=== PATIENT | female | born 1940 | race Two or more races ===

== ENCOUNTER → 2020-08-13 | Outpatient (CLI) | payer MEDICARE ==
[2020-08-13 08:57] LABS: Basophils # (auto) 0 10 ^3/uL (0-0.2); Basophils % (auto) 0.8 % (0.0-2.0); Eosinophils # (auto) 0.1 10 ^3/uL (0-0.8); Eosinophils % (auto) 3.4 % (0.0-7.0); Hematocrit 35.5 % (36.0-46.0); Hemoglobin 11.9 g/dL (12.2-16.2); Lymphocytes # (auto) 1.3 10 ^3/uL (0.4-5.4); Lymphocytes % (auto) 33.8 % (10.0-50.0); Mean Corpuscular Hemoglobin 32.9 pg (28.0-32.0); Mean Corpuscular Hgb Conc. 33.5 g/dL (32.0-36.0); Mean Corpuscular Volume 98.1 fL (80.0-100.0); Monocytes # (auto) 0.4 10 ^3/uL (0-1.3); Monocytes % (auto) 11.1 % (0.0-12.0); Neutrophils % (auto) 50.9 % (37.0-80.0); Nucleated Red Blood Cells % 0.1 %; Platelet Count (auto) 117 10^3/uL (140-450); Red Blood Cells 3.62 10^6/uL (4.0-5.20); Red Cell Distribution Width 16.6 % (11.8-14.3); White Blood Cell 3.9 10^3/uL (4.4-10.8)
[2020-08-13 09:05] LABS: Urine Bacteria FEW /hpf (None Seen); Urine Blood Negative /uL (Negative); Urine Mucus FEW (None Seen); Urine Specific Gravity 1.024 (1.001-1.035); Urine WBC 61 /hpf (0 - 5)
[2020-08-13 09:14] LABS: INR 1.13 (0.9-1.15)
[2020-08-13 09:47] LABS: Albumin 2.5 g/dL (3.4-5.0); Calcium 8.6 mg/dL (8.5-10.1); Potassium 4.4 mmol/L (3.5-5.1)
[2020-08-13 09:52] LABS: BUN/Creatinine Ratio 15.3; Bilirubin, Total 0.6 mg/dL (0.2-1.0); Total Protein 5.9 g/dL (6.4-8.2)
[2020-08-13 09:56] LABS: Free T4 (Free Thyroxine) 0.99 ng/dL (0.89-1.76)
== END | disposition home or self-care (01) ==
LOC: LAB 08:30
PROVIDERS: ATTEND Internal Medicine
DX: I25.10 Atherosclerotic heart disease of native coronary artery without angina pectoris (principal); G62.9 Polyneuropathy, unspecified; E03.9 Hypothyroidism, unspecified; E16.2 Hypoglycemia, unspecified; E78.5 Hyperlipidemia, unspecified; M81.0 Age-related osteoporosis without current pathological fracture
CPT/HCPCS: 36415; 80053; 80061; 81001; 82306; 82533; 82607; 83036; 83525; 84439; 84443; 85025; 85610; 85652

== ENCOUNTER 2020-08-27 06:01 | Emergency (ER) | payer MEDICARE ==
[~2020-08-27] VITALS: Ht 154.9 cm; Wt 113.4 kg
[2020-08-27 06:57] LABS: Basophils # (auto) 0 10 ^3/uL (0-0.2); Basophils % (auto) 0.7 % (0.0-2.0); Eosinophils # (auto) 0.1 10 ^3/uL (0-0.8); Eosinophils % (auto) 3.4 % (0.0-7.0); Hematocrit 35.7 % (36.0-46.0); Hemoglobin 11.9 g/dL (12.2-16.2); Lymphocytes # (auto) 1.3 10 ^3/uL (0.4-5.4); Lymphocytes % (auto) 33.2 % (10.0-50.0); Mean Corpuscular Hemoglobin 32.7 pg (28.0-32.0); Mean Corpuscular Hgb Conc. 33.3 g/dL (32.0-36.0); Mean Corpuscular Volume 98.1 fL (80.0-100.0); Monocytes # (auto) 0.5 10 ^3/uL (0-1.3); Monocytes % (auto) 12.3 % (0.0-12.0); Neutrophils % (auto) 50.4 % (37.0-80.0); Platelet Count (auto) 111 10^3/uL (140-450); Red Blood Cells 3.64 10^6/uL (4.0-5.20); Red Cell Distribution Width 15.9 % (11.8-14.3); White Blood Cell 3.9 10^3/uL (4.4-10.8)
[2020-08-27] MEDS ORDERED: cloNIDine HCL 0.1 MG TAB PO ONE (07:00)
[2020-08-27 07:09] LABS: Albumin 2.4 g/dL (3.4-5.0); Anion Gap 3 (5-15); Blood Urea Nitrogen 14 mg/dL (7-18); Calcium 8.3 mg/dL (8.5-10.1); Carbon Dioxide 28 mmol/L (21-32); Chloride 111 mmol/L (98-107); Glucose 88 mg/dL (74-106); Potassium 4.1 mmol/L (3.5-5.1); Sodium 142 mmol/L (136-145)
[2020-08-27 07:14] LABS: Alanine Aminotransferase 26 U/L (13-56); Alkaline Phosphatase 147 U/L (45-117); Aspartate Aminotransferase 32 U/L (15-37); BUN/Creatinine Ratio 15.4; Bilirubin, Total 0.5 mg/dL (0.2-1.0); GFR African American 76 mL/min; GFR Non-African American 63 mL/min; Total Protein 5.7 g/dL (6.4-8.2)
[2020-08-27 07:15] LABS: INR 1.13 (0.9-1.15); Partial Thromboplastin Time 25.1 sec (23.0-31.2)
[2020-08-27 08:13] VITALS: BP 174/68
== END 2020-08-27 09:00 | disposition home or self-care (01) ==
LOC: EDBD 06:01 → ER 06:01
DX: I11.0 Hypertensive heart disease with heart failure (principal); R07.89 Other chest pain; I50.9 Heart failure, unspecified; E11.9 Type 2 diabetes mellitus without complications; E43 Unspecified severe protein-calorie malnutrition; Z68.42 Body mass index [BMI] 45.0-49.9, adult
CPT/HCPCS: 36415; 71045; 80053; 83880; 84484; 85025; 85610; 85730; 93005

== ENCOUNTER 2020-08-30 18:29 | Inpatient (IN) | payer MEDICARE ==
[~2020-08-30] VITALS: Ht 162.6 cm; Wt 124.2 kg
[2020-08-30] MEDS ORDERED: cefTRIAXone 1GM/50ML D5W 50 ML IV ONE (19:45)
[2020-08-30 20:58] LABS: Basophils # (auto) 0 10 ^3/uL (0-0.2); Basophils % (auto) 0.5 % (0.0-2.0); Eosinophils # (auto) 0.1 10 ^3/uL (0-0.8); Eosinophils % (auto) 2.7 % (0.0-7.0); Hemoglobin 11.1 g/dL (12.2-16.2); Lymphocytes # (auto) 1.6 10 ^3/uL (0.4-5.4); Lymphocytes % (auto) 39.8 % (10.0-50.0); Mean Corpuscular Hemoglobin 33.7 pg (28.0-32.0); Mean Corpuscular Hgb Conc. 34.6 g/dL (32.0-36.0); Mean Corpuscular Volume 97.5 fL (80.0-100.0); Monocytes # (auto) 0.5 10 ^3/uL (0-1.3); Monocytes % (auto) 11.9 % (0.0-12.0); Neutrophils # (auto) 1.9 10 ^3/uL (1.6-8.6); Neutrophils % (auto) 45.1 % (37.0-80.0); Nucleated Red Blood Cells % 0.1 %; Platelet Count (auto) 101 10^3/uL (140-450); Red Blood Cells 3.28 10^6/uL (4.0-5.20); Red Cell Distribution Width 15.8 % (11.8-14.3); White Blood Cell 4.1 10^3/uL (4.4-10.8)
[2020-08-30 21:11] LABS: Anion Gap 8 (5-15); BUN/Creatinine Ratio 11.8; Blood Urea Nitrogen 11 mg/dL (7-18); Calcium 7.8 mg/dL (8.5-10.1); Carbon Dioxide 26 mmol/L (21-32); Chloride 109 mmol/L (98-107); GFR African American 75 mL/min; GFR Non-African American 62 mL/min; Glucose 88 mg/dL (74-106); Magnesium 1.8 mg/dL (1.6-2.6); Potassium 3.9 mmol/L (3.5-5.1); Sodium 143 mmol/L (136-145)
[2020-08-30 21:37] LABS: Urine Bacteria FEW /hpf (None Seen); Urine Blood Negative /uL (Negative); Urine Mucus FEW (None Seen); Urine Specific Gravity 1.016 (1.001-1.035); Urine WBC 24 /hpf (0 - 5)
[2020-08-31] MEDS ORDERED: ONDANSETRON HCL 4 MG/2 ML VIAL IV PRN (03:30)
[2020-08-31] MEDS ORDERED: NITROGLYCERIN 0.4 MG SL TAB SL PRN (03:30)
[2020-08-31] MEDS ORDERED: ACETAMINOPHEN 325 MG TAB PO PRN (03:30)
[2020-08-31] MEDS ORDERED: DOCUSATE SOD 100 MG CAP PO PRN (03:30)
[2020-08-31] MEDS ORDERED: MORPHINE SULF INJ 2 MG/ML SYRINGE 1ML IV PRN (03:30)
[2020-08-31] MEDS ORDERED: HYDROcodone-ACET 5/325MG TAB PO PRN (03:30)
[2020-08-31 04:11] LABS: Basophils # (auto) 0 10 ^3/uL (0-0.2); Basophils % (auto) 0.6 % (0.0-2.0); Eosinophils # (auto) 0.1 10 ^3/uL (0-0.8); Eosinophils % (auto) 3.1 % (0.0-7.0); Hematocrit 31.1 % (36.0-46.0); Hemoglobin 10.6 g/dL (12.2-16.2); Lymphocytes # (auto) 1.4 10 ^3/uL (0.4-5.4); Lymphocytes % (auto) 36.3 % (10.0-50.0); Mean Corpuscular Hemoglobin 33.1 pg (28.0-32.0); Mean Corpuscular Volume 97.2 fL (80.0-100.0); Monocytes # (auto) 0.5 10 ^3/uL (0-1.3); Monocytes % (auto) 13.1 % (0.0-12.0); Neutrophils # (auto) 1.9 10 ^3/uL (1.6-8.6); Neutrophils % (auto) 46.9 % (37.0-80.0); Platelet Count (auto) 96 10^3/uL (140-450); Red Cell Distribution Width 15.3 % (11.8-14.3); White Blood Cell 3.9 10^3/uL (4.4-10.8)
[2020-08-31 04:29] LABS: Albumin 2.3 g/dL (3.4-5.0); Calcium 8.1 mg/dL (8.5-10.1); Potassium 3.8 mmol/L (3.5-5.1)
[2020-08-31 04:34] LABS: BUN/Creatinine Ratio 12.8; Bilirubin, Total 0.5 mg/dL (0.2-1.0); Total Protein 5.1 g/dL (6.4-8.2)
[2020-08-31 05:00] VITALS: BP 145/90
[2020-08-31] MEDS: SODIUM CHLOR 0.9% PF (SALINE LOCK) 10ML VIAL/SYR IV SCH ×3 (05:22→22:02)
[2020-08-31 09:00] VITALS: BP 130/51
[2020-08-31] MEDS: ENOXAPARIN SOD 40 MG/0.4 ML SYRINGE SC SCH (09:47)
[2020-08-31] MEDS: ASCORBIC ACID 500 MG TAB PO SCH ×2 (09:48→22:00)
[2020-08-31] MEDS: ZINC SULFATE 220mg CAP or TAB PO SCH (09:48)
[2020-08-31] MEDS: cefTRIAXone 1GM/50ML D5W 50 ML IV SCH (09:48)
[2020-08-31] MEDS: FAMOTIDINE 20 MG TAB PO SCH (09:48)
[2020-08-31] MEDS: MULTIPLE VITAMIN TAB PO SCH (09:48)
[2020-08-31 13:00] VITALS: BP 150/82
[2020-08-31] MEDS ORDERED: CYANOCOBALAMIN (B-12) 1000 MCG/1 ML VIAL SUBCUT ONE (16:00)
[2020-08-31 17:00] VITALS: BP 121/83
[2020-08-31 22:00] VITALS: BP 150/65
[2020-09-01 05:07] VITALS: BP 143/74
[2020-09-01 05:18] LABS: Basophils # (auto) 0 10 ^3/uL (0-0.2); Basophils % (auto) 0.6 % (0.0-2.0); Eosinophils # (auto) 0.2 10 ^3/uL (0-0.8); Eosinophils % (auto) 4.7 % (0.0-7.0); Hemoglobin 10.3 g/dL (12.2-16.2); Lymphocytes # (auto) 1.3 10 ^3/uL (0.4-5.4); Lymphocytes % (auto) 36.5 % (10.0-50.0); Mean Corpuscular Hemoglobin 33.6 pg (28.0-32.0); Mean Corpuscular Hgb Conc. 34.5 g/dL (32.0-36.0); Mean Corpuscular Volume 97.4 fL (80.0-100.0); Monocytes # (auto) 0.5 10 ^3/uL (0-1.3); Monocytes % (auto) 14.5 % (0.0-12.0); Neutrophils # (auto) 1.5 10 ^3/uL (1.6-8.6); Neutrophils % (auto) 43.7 % (37.0-80.0); Nucleated Red Blood Cells % 0.3 %; Platelet Count (auto) 86 10^3/uL (140-450); Red Blood Cells 3.08 10^6/uL (4.0-5.20); Red Cell Distribution Width 15.3 % (11.8-14.3); White Blood Cell 3.5 10^3/uL (4.4-10.8)
[2020-09-01 05:31] LABS: Albumin 2.3 g/dL (3.4-5.0)
[2020-09-01 05:36] LABS: Bilirubin, Total 0.5 mg/dL (0.2-1.0)
[2020-09-01] MEDS: SODIUM CHLOR 0.9% PF (SALINE LOCK) 10ML VIAL/SYR IV SCH ×3 (06:00→21:00)
[2020-09-01 09:00] VITALS: BP 115/77
[2020-09-01] MEDS: ENOXAPARIN SOD 40 MG/0.4 ML SYRINGE SC SCH (10:00)
[2020-09-01] MEDS: cefTRIAXone 1GM/50ML D5W 50 ML IV SCH (10:27)
[2020-09-01] MEDS: MULTIPLE VITAMIN TAB PO SCH (10:27)
[2020-09-01] MEDS: FAMOTIDINE 20 MG TAB PO SCH (10:28)
[2020-09-01] MEDS: ASCORBIC ACID 500 MG TAB PO SCH ×2 (10:28→21:00)
[2020-09-01] MEDS: ZINC SULFATE 220mg CAP or TAB PO SCH (10:28)
[2020-09-01 13:00] VITALS: BP 138/64
[2020-09-01 17:00] VITALS: BP 142/63
[2020-09-01] MEDS: NYSTATIN TOPICAL POWDER 15GM TOP SCH (21:00)
[2020-09-01 21:53] VITALS: BP 131/54
[2020-09-02 04:42] VITALS: BP 124/76
[2020-09-02] MEDS: SODIUM CHLOR 0.9% PF (SALINE LOCK) 10ML VIAL/SYR IV SCH ×2 (06:00→14:00)
[2020-09-02 06:57] LABS: Basophils # (auto) 0 10 ^3/uL (0-0.2); Basophils % (auto) 0.6 % (0.0-2.0); Eosinophils # (auto) 0.2 10 ^3/uL (0-0.8); Eosinophils % (auto) 4.5 % (0.0-7.0); Hematocrit 31.6 % (36.0-46.0); Hemoglobin 10.8 g/dL (12.2-16.2); Lymphocytes # (auto) 1.6 10 ^3/uL (0.4-5.4); Lymphocytes % (auto) 38.6 % (10.0-50.0); Mean Corpuscular Hemoglobin 33.6 pg (28.0-32.0); Mean Corpuscular Hgb Conc. 34.2 g/dL (32.0-36.0); Mean Corpuscular Volume 98.1 fL (80.0-100.0); Monocytes # (auto) 0.5 10 ^3/uL (0-1.3); Monocytes % (auto) 12.2 % (0.0-12.0); Neutrophils # (auto) 1.8 10 ^3/uL (1.6-8.6); Neutrophils % (auto) 44.1 % (37.0-80.0); Nucleated Red Blood Cells % 0.1 %; Platelet Count (auto) 89 10^3/uL (140-450); Red Blood Cells 3.22 10^6/uL (4.0-5.20); Red Cell Distribution Width 14.9 % (11.8-14.3); White Blood Cell 4.1 10^3/uL (4.4-10.8)
[2020-09-02 08:00] VITALS: BP 136/87
[2020-09-02] MEDS: cefTRIAXone 1GM/50ML D5W 50 ML IV SCH ×2 (09:00→09:11)
[2020-09-02] MEDS: FAMOTIDINE 20 MG TAB PO SCH (09:10)
[2020-09-02] MEDS: ASCORBIC ACID 500 MG TAB PO SCH (09:11)
[2020-09-02] MEDS: ZINC SULFATE 220mg CAP or TAB PO SCH (09:11)
[2020-09-02] MEDS: MULTIPLE VITAMIN TAB PO SCH (09:14)
[2020-09-02] MEDS ORDERED: ENOXAPARIN SOD 40 MG/0.4 ML SYRINGE SC SCH (10:00)
[2020-09-02] MEDS: NYSTATIN TOPICAL POWDER 15GM TOP SCH (11:12)
[2020-09-02 11:24] VITALS: BP 136/87
[2020-09-02] MEDS ORDERED: PNEUMOCOCCAL VACC POLYS 25 MCG/0.5 ML VIAL IM ONE (12:15)
== END 2020-09-02 14:56 | disposition home health service (06) | DRG 690 ==
LOC: ER 18:29 → EDBD 18:29 → TELE 08-31 03:27 → TELE-WESTW 08-31 04:33
PROVIDERS: ADMIT Nurse Practitioner Family; ATTEND Internal Medicine
DX: N30.00 Acute cystitis without hematuria (principal); Z68.41 Body mass index [BMI] 40.0-44.9, adult; E44.1 Mild protein-calorie malnutrition; I50.9 Heart failure, unspecified; R00.2 Palpitations; D72.819 Decreased white blood cell count, unspecified; Z20.822 Contact with and (suspected) exposure to COVID-19; D64.9 Anemia, unspecified; E03.9 Hypothyroidism, unspecified; E11.9 Type 2 diabetes mellitus without complications; E66.01 Morbid (severe) obesity due to excess calories; Z82.49 Family history of ischemic heart disease and other diseases of the circulatory system; I25.2 Old myocardial infarction; I25.10 Atherosclerotic heart disease of native coronary artery without angina pectoris; I11.0 Hypertensive heart disease with heart failure; Z95.5 Presence of coronary angioplasty implant and graft
CPT/HCPCS: 36415; 71045; 80048; 80053; 81001; 82565; 83605; 83735; 83880; 84443; 84484; 85025; 87040; 87086; 87426; 93306; 96365; 96366; 96372; 96375; G0378; J0696; J2405

== ENCOUNTER 2020-09-17 11:54 | Emergency (ER) | payer MEDICARE ==
[~2020-09-17] VITALS: Ht 165.1 cm; Wt 120.2 kg
[2020-09-17 16:38] LABS: Basophils # (auto) 0 10 ^3/uL (0-0.2); Basophils % (auto) 0.7 % (0.0-2.0); Eosinophils # (auto) 0.1 10 ^3/uL (0-0.8); Eosinophils % (auto) 2.4 % (0.0-7.0); Hematocrit 35.7 % (36.0-46.0); Lymphocytes # (auto) 1.5 10 ^3/uL (0.4-5.4); Lymphocytes % (auto) 28.7 % (10.0-50.0); Mean Corpuscular Hemoglobin 32.8 pg (28.0-32.0); Mean Corpuscular Hgb Conc. 33.7 g/dL (32.0-36.0); Mean Corpuscular Volume 97.5 fL (80.0-100.0); Monocytes # (auto) 0.6 10 ^3/uL (0-1.3); Monocytes % (auto) 11.2 % (0.0-12.0); Nucleated Red Blood Cells % 0.1 %; Platelet Count (auto) 130 10^3/uL (140-450); Red Blood Cells 3.66 10^6/uL (4.0-5.20); Red Cell Distribution Width 15.1 % (11.8-14.3); White Blood Cell 5.3 10^3/uL (4.4-10.8)
[2020-09-17 16:54] LABS: Potassium 4.2 mmol/L (3.5-5.1)
[2020-09-17 16:57] LABS: Albumin 2.9 g/dL (3.4-5.0); BUN/Creatinine Ratio 21.3; Calcium 8.4 mg/dL (8.5-10.1)
[2020-09-17 17:00] LABS: Bilirubin, Total 0.4 mg/dL (0.2-1.0); Total Protein 6.2 g/dL (6.4-8.2)
[2020-09-17 17:30] VITALS: BP 182/74
== END 2020-09-17 16:58 | disposition home or self-care (01) ==
LOC: EDBD 11:54 → ER 11:54
DX: M25.551 Pain in right hip (principal); E11.9 Type 2 diabetes mellitus without complications; E78.5 Hyperlipidemia, unspecified; I25.2 Old myocardial infarction; Z90.49 Acquired absence of other specified parts of digestive tract
CPT/HCPCS: 36415; 73700; 80053; 85025; 93971

== ENCOUNTER → 2020-10-03 | Outpatient (CLI) | payer MEDICARE | END | disposition home or self-care (01) | LOC: Rad HDHVI 13:53 | PROVIDERS: ATTEND Internal Medicine Cardiovascular Disease | DX: I11.0 Hypertensive heart disease with heart failure (principal); I50.9 Heart failure, unspecified | CPT/HCPCS: 93306 ==

== ENCOUNTER → 2020-10-09 | Outpatient (CLI) | payer MEDICARE ==
[~2020-10-09] VITALS: Ht 162.6 cm; Wt 120.2 kg
[~2020-10-09] MED LIST: ADENOSINE 101 MG in GIVE UN-DILUTED 0 ML IV ONE; ADENOSINE 90 MG/30 ML INJ IV ONE
== END | disposition home or self-care (01) ==
LOC: Rad HDHVI 13:16
PROVIDERS: ATTEND Internal Medicine Cardiovascular Disease
DX: I25.10 Atherosclerotic heart disease of native coronary artery without angina pectoris (principal); I10 Essential (primary) hypertension; E78.00 Pure hypercholesterolemia, unspecified; E11.42 Type 2 diabetes mellitus with diabetic polyneuropathy; I25.2 Old myocardial infarction; R07.9 Chest pain, unspecified
CPT/HCPCS: 78452; 93005; 96374; 96375; A9500; J0153

== ENCOUNTER → 2021-07-26 | Outpatient (CLI) | payer MEDICARE ==
[2021-07-26 11:51] LABS: Calcium 8.8 mg/dL (8.5-10.1); Magnesium 2.2 mg/dL (1.6-2.6); Potassium 4.5 mmol/L (3.5-5.1)
[2021-07-26 11:57] LABS: Albumin 3.1 g/dL (3.4-5.0); BUN/Creatinine Ratio 21.3; Bilirubin, Total 0.5 mg/dL (0.2-1.0); Total Protein 6.3 g/dL (6.4-8.2)
[2021-07-26 11:58] LABS: Free T4 (Free Thyroxine) 0.97 ng/dL (0.89-1.76)
== END | disposition home or self-care (01) ==
LOC: LAB 10:30
PROVIDERS: ATTEND Internal Medicine
DX: G62.9 Polyneuropathy, unspecified (principal); I10 Essential (primary) hypertension
CPT/HCPCS: 36415; 80053; 80061; 82306; 82607; 83735; 84439; 84443; 85652

== ENCOUNTER → 2021-11-07 | Outpatient (CLI) | payer MEDICARE ==
[2021-11-07 12:11] LABS: Free T4 (Free Thyroxine) 1.1 ng/dL (0.89-1.76)
[2021-11-12 11:07] LABS: Methylmalonic Acid 271 nmol/L (0-378)
== END | disposition home or self-care (01) ==
LOC: LAB 11:04
PROVIDERS: ATTEND Internal Medicine
DX: D64.9 Anemia, unspecified (principal); I10 Essential (primary) hypertension
CPT/HCPCS: 36415; 82607; 84439; 84443

== ENCOUNTER → 2022-01-10 | Outpatient (CLI) | payer MEDICARE ==
[2022-01-10 16:45] LABS: Basophils # (auto) 0 10 ^3/uL (0-0.2); Basophils % (auto) 0.6 % (0.0-2.0); Eosinophils # (auto) 0 10 ^3/uL (0-0.8); Eosinophils % (auto) 1.3 % (0.0-7.0); Hematocrit 39.3 % (36.0-46.0); Hemoglobin 12.7 g/dL (12.2-16.2); Lymphocytes # (auto) 1.2 10 ^3/uL (0.4-5.4); Lymphocytes % (auto) 33.5 % (10.0-50.0); Mean Corpuscular Hemoglobin 29.3 pg (28.0-32.0); Mean Corpuscular Hgb Conc. 32.3 g/dL (32.0-36.0); Mean Corpuscular Volume 90.9 fL (80.0-100.0); Monocytes # (auto) 0.3 10 ^3/uL (0-1.3); Monocytes % (auto) 8.6 % (0.0-12.0); Nucleated Red Blood Cells % 0.1 %; Red Blood Cells 4.33 10^6/uL (4.0-5.20); Red Cell Distribution Width 18.2 % (11.8-14.3); Urine Bacteria MANY /hpf (None Seen); Urine Blood Negative /uL (Negative); Urine Specific Gravity 1.031 (1.001-1.035); Urine WBC 38 /hpf (0 - 5); White Blood Cell 3.6 10^3/uL (4.4-10.8)
[2022-01-10 17:15] LABS: Albumin 2.8 g/dL (3.4-5.0); Calcium 8.2 mg/dL (8.5-10.1); Potassium 4.8 mmol/L (3.5-5.1)
[2022-01-10 17:18] LABS: Bilirubin, Total 0.4 mg/dL (0.2-1.0); Total Protein 5.7 g/dL (6.4-8.2)
== END | disposition home or self-care (01) ==
LOC: LAB 16:17
PROVIDERS: ATTEND Internal Medicine
DX: I10 Essential (primary) hypertension (principal); Z86.79 Personal history of other diseases of the circulatory system; I50.9 Heart failure, unspecified
CPT/HCPCS: 36415; 80053; 81001; 83880; 84439; 84443; 85025

== ENCOUNTER 2025-05-10 15:23 | Emergency (ER) | payer MEDICARE, MEDICAID ==
[~2025-05-10] VITALS: Ht 160 cm; Wt 136.3 kg
--- NOTE | 2025-05-10 16:34 | ED.PDOC ---
History of Present Illness HPI Comments 84F BIBA w/ prior MHx of CAD, Cancer (Previous history of skin cancer), DM, High Lipids, HTN, [place], Thyroid, being bed bound, Dementia, uses Home O2 of 4L: SHx of Cholecystectomy, PTCA, Tonsillectomy, Back surgery, cataract surgery and the c/c of generalized weakness. EMS reports on the pt having had generalized weakness for 1 days w/ the daughter checking the BP of the pt being 82/50 and when EMS arrived on scene the pt had a BS of 113, and on 4l of O2 via NC satting at 94%. EMS gave the pt 500cc of fluids en rout to the ED which brought the BP up to 130/47. Daughter noted to EMS on noticing a red rash on the right inner thing of the pt. Denies Any other Symptoms at this time. Time Seen by MD: 16:00 Reviewed Notes: Nurses Notes, Medications, Allergies Allergies: Coded Allergies: Sulfa Antibiotics (Verified Allergy, Unknown, 10/09/20) Home Meds Unable to Obtain Active Prescriptions or Reported Meds Information Source: Patient, Relative (Child), Emergency Med Personnel Mode of Arrival: EMS Severity: Moderate Timing: Hours Duration: Since onset, Hours Prehospital treatment: None Past Medical History PAST MEDICAL HISTORY: CAD, Cancer (Previous history of skin cancer), Dementia, DM, High Lipids, HTN, [place], Thyroid Past Medical History (Other): bed bound, uses Home O2 of 4L Surgical History: Cholecystectomy, PTCA, Tonsillectomy Surgical History (Other): Back surgery, cataract surgery NUCLEAR MEDICINE TECH History: No Pertinent NUCLEAR MEDICINE TECH History Family History Family History: Reviewed,noncontributory to illness, Unknown Social History Smoker: Non-Smoker Alcohol: Denies ETOH Use Drugs: Denies Drug Use Lives In: Home Constitutional: reports: weakness; denies: chills, diaphoresis, fatigue, fever, malaise, sweats, others EENTM: denies: blurred vision, double vision, ear bleeding, ear discharge, ear drainage, ear pain, ear ringing, eye pain, eye redness, hearing loss, mouth pain, mouth swelling, nasal discharge, nose bleeding, nose congestion, nose pain, photophobia, tearing, throat pain, throat swelling, voice changes, others Respiratory: denies: cough, hemoptysis, orthopnea, SOB at rest, shortness of breath, SOB with excertion, stridor, wheezing, others Cardiovascular: reports: others (hypotension); denies: chest pain, dizzy spells, diaphoresis, Dyspnea on exertion, edema, irregular heart beat, left arm pain, lightheadedness, palpitations, PND, syncope Gastrointestinal: denies: abdomen distended, abdominal pain, blood streaked bowels, constipated, diarrhea, dysphagia, difficulty swallowing, hematemesis, melena, nausea, poor appetite, poor fluid intake, rectal bleeding, rectal pain, vomiting, others Genitourinary: denies: abnormal vagina bleeding, burning, dyspareunia, dysuria, flank pain, frequency, hematuria, incontinence, pain, , vagina discharge, urgency, others Neurological: denies: dizziness, fainting, headache, left sided numbness, left sided weakness, numbness, paresthesia, pre-existing deficit, right sided numbness, right sided weakness, seizure, speech problems, tingling, tremors, weakness, others Musculoskeletal: denies: back pain, gout, joint pain, joint swelling, muscle pain, muscle stiffness, neck pain, others Integumetry: denies: bruises, change in color, change in hair/nails, dryness, laceration, lesions, lumps, rash, wounds, others Allergic/Immunocompromised: denies: Difficulty Healing, Frequent Infections, Hives, Itching, others Hematologic/Lymphatic: denies: anemia, blood clots, easy bleeding, easy bruising, swollen glands, others Endocrine: denies: excessive hunger, excessive sweating, excessive thirst, excessive urination, flushing, intolerance to cold, intolerance to heat, unexplained weight gain, unexplained weight loss, others Psychiatric: denies: anxiety, bipolar disorder, depression, hopeless, panic disorder, schizophrenia, sleepless, suicidal, others All Other Systems: Reviewed and Negative Physical Exam General Appearance: No Apparent Distress, Normal HEENT: Normal ENT Inspection, Pharynx Normal, TMs Normal Neck: Full Range of Motion, Non-Tender, Normal, Normal Inspection Respiratory: Chest Non-Tender, Lungs Clear, No Accessory Muscle Use, No Respiratory Distress, Normal Breath Sounds Cardiovascular: No Edema, No JVD, No Murmur, No Gallop, Normal Peripheral Pulses, Regular Rate/Rhythm Breast Exam: Deferred Gastrointestinal: No Organomegaly, Non Tender, No Pulsatile Mass, Normal Bowel Sounds, Soft Genitalia: Deferred Pelvic: Deferred Rectal: Deferred Extremities: No calf tenderness, Normal capillary refill, Normal inspection, Normal range of motion, Non-tender, No pedal edema Musculoskeletal : Apperance: Normal Neurologic: Alert, echocardiographer II-XII nml as Tested, No Motor Deficits, Normal Affect, Normal Mood, No Sensory Deficits Cerebellar Function: Normal Reflexes: Normal Skin: Dry, Normal Color, Warm Lymphatic: No Adenopathy Was a procedure done? Was a procedure done?: No Differential Dx Considerations may include: Urinary tract infection, sepsis, URI, X-Ray, Labs, Meds, VS Vital Signs Date Time Temp Pulse Resp B/P (MAP) Pulse Ox O2 Delivery O2 Flow Rate FiO2 05/10/25 19:32 98.2 73 15 121/50 (73) 100 98.2 05/10/25 19:30 73 15 100 Nasal Cannula* 2 28 05/10/25 18:00 73 13 135/86 (102) 97 05/10/25 17:30 75 12 100 Nasal Cannula* 4 36 05/10/25 17:30 97.8 75 12 132/50 (77) 100 97.8 05/10/25 15:51 69 05/10/25 15:29 98.0 72 16 127/82 94 98.0 Lab Test 05/10/25 21:24 05/10/25 20:56 05/10/25 18:38 05/10/25 17:35 Range/Units Urine Color Light-yellow Yellow Urine Clarity Clear Clear Urine pH 5.0 5.0-9.0 Urine Specific [place] 1.008 1.001-1.035 Urine Protein Negative Negative Urine Ketones Negative Negative Urine Blood Negative Negative /uL Urine Nitrite Negative Negative Urine Bilirubin Negative Negative Urine Urobilinogen Normal Negative mg/dL Urine Leukocyte Esterase Negative Negative /uL Urine RBC 1 0 - 4 /hpf Urine Microscopic WBC 2 0-5 /HPF Urine Squamous Epithelial Cells Few <5 /hpf Urine Bacteria Few H None Seen /hpf Urine Hyaline Casts Few 0 - 2 /lpf Urine Glucose Normal Normal mg/dL POC Glucose 99 70-106 mg/dl Troponin I High Sensitivity 5 4 </=34 ng/L White Blood Count 5.9 4.4-10.8 10^3/uL Red Blood Count 3.43 L 4.0-5.20 10^6/uL Hemoglobin 10.5 L 12.2-16.2 g/dL Hematocrit 30.4 L 36.0-46.0 % Mean Corpuscular Volume 88.8 80.0-100.0 fL Mean Corpuscular Hemoglobin 30.5 28.0-32.0 pg Mean Corpuscular Hemoglobin Concent 34.4 32.0-36.0 g/dL Red Cell Distribution Width 16.8 H 11.8-14.3 % Platelet Count 120 L 140-450 10^3/uL Mean Platelet Volume 7.1 6.9-10.8 fL Neutrophils (%) (Auto) 67.5 37.0-80.0 % Lymphocytes (%) (Auto) 22.1 10.0-50.0 % Monocytes (%) (Auto) 8.6 0.0-12.0 % Eosinophils (%) (Auto) 1.5 0.0-7.0 % Basophils (%) (Auto) 0.3 0.0-2.0 % Neutrophils # (Auto) 4.0 1.6-8.6 10 ^3/uL Lymphocytes # (Auto) 1.3 0.4-5.4 10 ^3/uL Monocytes # (Auto) 0.5 0-1.3 10 ^3/uL Eosinophils # (Auto) 0.1 0-0.8 10 ^3/uL Basophils # (Auto) 0 0-0.2 10 ^3/uL Nucleated Red Blood Cells 0.0 % Sodium Level 138 136-145 mmol/L Potassium Level 4.6 3.5-5.1 mmol/L Chloride Level 102 98-107 mmol/L Carbon Dioxide Level 29 20-31 mmol/L Anion Gap 7 5-15 Blood Urea Nitrogen 19 9-23 mg/dL Creatinine 1.59 H 0.550-1.02 mg/dL Glomerular Filtration Rate Calc 32 >90 mL/min BUN/Creatinine Ratio 11.9 10.0-20.0 Serum Glucose 85 74-106 mg/dL Lactic Acid Level 0.8 0.4-2.0 mmol/L Calcium Level 8.0 L 8.7-10.4 mg/dL Total Bilirubin 0.5 0.2-1.0 mg/dL Aspartate Amino Transferase (AST) 13 13-40 U/L Alanine Aminotransferase (ALT) < 9 7-40 U/L Alkaline Phosphatase 97 46-116 U/L B-Type Natriuretic Peptide 76.84 0-100 pg/mL Total Protein 5.4 L 5.7-8.2 g/dL Albumin 2.9 L 3.2-4.8 g/dL Current Medications Medications (Trade) Dose Ordered Sig/Eugenie Route Start Time Stop Time Status Last Admin Sodium Chloride 1,000 ml @ 1,000 mls/hr Q1H ONCE IV 05/10/25 21:15 05/10/25 22:14 05/10/25 21:15 X-Ray, Labs, Meds, VS Comment Patient will be admitted for generalized weakness, chronic anemia, possible director social welfare consult Patient hemodynamically stable No current complaints at this time Time of 1ST Reevaluation: 16:30 Reevaluation 1ST: Unchanged Patient Education/Counseling: Diagnosis, Treatment, Prognosis, Need For Follow Up (Follow up with PCP in two days. Return to the emergency department if symptoms worsen.) Family Education/Counseling: No Family Present SEPSIS Sepsis Screen Physician Orders Electrocardigram (05/10/25 15:58) Chest Xray 1 View (05/10/25 16:09) Sodium Chloride 0.9% (05/10/25 21:15) Vital Signs Date Time Temp Pulse Resp B/P (MAP) Pulse Ox O2 Delivery O2 Flow Rate FiO2 05/10/25 19:32 98.2 73 15 121/50 (73) 100 98.2 05/10/25 19:30 73 15 100 Nasal Cannula* 2 28 05/10/25 18:00 73 13 135/86 (102) 97 05/10/25 17:30 75 12 100 Nasal Cannula* 4 36 05/10/25 17:30 97.8 75 12 132/50 (77) 100 97.8 05/10/25 15:51 69 05/10/25 15:29 98.0 72 16 127/82 94 98.0 Laboratory Tests Test 05/10/25 17:35 Lactic Acid Level 0.8 mmol/L (0.4-2.0) White Blood Count 5.9 10^3/uL (4.4-10.8) Medications Medications Dose Ordered Sig/Eugenie Route Start Time Stop Time Status Last Admin Dose Admin Sodium Chloride 1,000 ml @ 1,000 mls/hr Q1H ONCE IV 05/10/25 21:15 05/10/25 22:14 05/10/25 21:15 Departure 1 Departure Time of Disposition: 21:06 Impression: Primary Impression: Generalized weakness Additional Impressions: Anemia Qualified Codes: D50.9 - Iron deficiency anemia, unspecified Cellulitis Qualified Codes: L03.115 - Cellulitis of right lower limb Disposition: 01 HOME / SELF CARE / HOMELESS Condition: Stable e-Prescriptions Clindamycin Hcl (Clindamycin Hcl) 300 Mg Cap 1 CAP PO TID for 10 Days, #30 CAP Prov: LISSETT CONN 05/10/25 Critical Care Note Critical Care Time?: No Stability Stability form required: No Heart Score Heart Score: Heart Score Response (Comments) Value History N/A 0 EKG N/A 0 Age N/A 0 Risk Factors N/A 0 Troponin N/A 0 Total 0 I personally scribed for LISSETT CONN ([email or web address]) on 05/10/25 at 16:34. Electronically submitted by Jose Mendez ([email or web address]). LISSETT CONN May 10, 2025 16:34
[2025-05-10 17:30] VITALS: PULSE 75; RESP 12; O2SAT 100
--- NOTE | 2025-05-10 17:40 | ECG ---
[facility] Test Date: 2025-05-10 Test Time: 15:51:27 Pat Name: ELENA DURAN Department: ED Room: Gender: F Service [employer]: ER : 1940 Requested By: LISSETT BALDWIN* Order Number: [id number] Reading MD: Romulo Narayan Measurements Intervals [place] Rate: 69 P: 71 CA: 76 QRS: 19 QRSD: 147 T: 8 QT: 423 QTc: 454 Interpretive Statements Sinus rhythm Short CA interval Left atrial enlargement Right bundle branch block Electronically Signed On 05-10-2025 18:55:46 PST by Romulo Narayan Please click the below link to view image of tracing.
[2025-05-10 17:52] LABS: Hematocrit 30.4 % (36.0-46.0); Hemoglobin 10.5 g/dL (12.2-16.2); Mean Corpuscular Hemoglobin 30.5 pg (28.0-32.0); Mean Corpuscular Volume 88.8 fL (80.0-100.0); Nucleated Red Blood Cells % 0.0 %
[2025-05-10 18:10] LABS: Alkaline Phosphatase 97 U/L (46-116); Anion Gap 7 (5-15); BUN/Creatinine Ratio 11.9 (10.0-20.0); Blood Urea Nitrogen 19 mg/dL (9-23); Carbon Dioxide 29 mmol/L (20-31); Chloride 102 mmol/L (98-107); Glucose 85 mg/dL (74-106); Potassium 4.6 mmol/L (3.5-5.1); Sodium 138 mmol/L (136-145)
[2025-05-10 18:11] LABS: Bilirubin, Total 0.5 mg/dL (0.2-1.0)
[2025-05-10 18:31] LABS: Alanine Aminotransferase < 9 U/L (7-40); Calcium 8.0 mg/dL (8.7-10.4)
[2025-05-10 18:32] LABS: Albumin 2.9 g/dL (3.2-4.8); Total Protein 5.4 g/dL (5.7-8.2)
--- NOTE | 2025-05-10 18:58 | DVH ---
CHEST RADIOGRAPH Indication: gen weak Technique: Single frontal view of the chest was obtained Comparison: XR CHEST 1 VIEW on DOS: 11/07/22, XR CHEST 1 VIEW on DOS: 11/04/22, CHEST PORTABLE on DOS: 08/30/20 FINDINGS: Lines and Tubes: None Lungs: No focal consolidation. Pleura: No effusion. No pneumothorax. Cardiomediastinal contours: Unremarkable Bones: Bilateral shoulder prostheses in place IMPRESSION: 1. No acute cardiopulmonary disease.
[2025-05-10 19:30] VITALS: PULSE 73; RESP 15; O2SAT 100
[2025-05-10] MEDS: SODIUM CHLORIDE 0.9% 1,000 ML IV ONE (21:15)
[2025-05-10 21:53] LABS: Urine Protein, UAD Negative (Negative)
[2025-05-10] MEDS ORDERED: CLIN1CAP70 PO (22:11)
[2025-05-10] MEDS: OXYCODONE W/ ACETAMINOPHEN 5/325MG TABLET PO ONE (23:38)
[2025-05-10] MEDS: GABAPENTIN 300 MG CAP PO ONE (23:38)
[2025-05-11 08:41] VITALS: PULSE 61; RESP 17; O2SAT 100
[2025-05-11 15:49] VITALS: BP 132/77; PULSE 67; RESP 11; TEMP 97.7; O2SAT 100
== END 2025-05-11 15:51 | disposition home or self-care (01) ==
LOC: ER 15:23 → EDBD 15:23 → ER 23:07
DX: D50.9 Iron deficiency anemia, unspecified (principal); L03.115 Cellulitis of right lower limb; R53.1 Weakness; E11.9 Type 2 diabetes mellitus without complications; I25.10 Atherosclerotic heart disease of native coronary artery without angina pectoris; Z88.2 Allergy status to sulfonamides; Z90.49 Acquired absence of other specified parts of digestive tract; Z90.89 Acquired absence of other organs; Z79.899 Other long term (current) drug therapy
CPT/HCPCS: 36415; 71045; 80053; 81001; 82947; 83605; 83880; 84484; 85025; 93005; 96360; 99285; J7030; 82962